=== PATIENT | female | born 2000 | race Caucasian/White ===

== ENCOUNTER 2020-10-20 11:55 | Emergency (ER) | payer MEDICAID, SELFPAY ==
--- NOTE | ~2020-10-20 | XR_ITS ---
EXAMINATION: XR CHEST CLINICAL INFORMATION: Cough and wheezing. COMPARISON: None TECHNIQUE: 2 views of the chest were obtained. FINDINGS: No significant abnormality is noted involving the heart, lungs, mediastinum, bony thorax or soft tissues. XR/XR chest 2V IMPRESSION: Unremarkable chest examination.
[2020-10-20 12:27] VITALS: BP 142/85; PULSE 92; RESP 20; TEMP 36.4; O2SAT 98; BMI 46.0
[2020-10-20 12:34] VITALS: RESP 18
--- NOTE | 2020-10-20 12:38 | ED.NAVMDI ---
HPI - Nausea/Vomiting/Diarrhea General Chief complaint: Nausea/Vomiting/Diarrhea <Mohsen Luque NP - Last Filed: 10/20/20 19:45> Stated complaint: multi complaints <Mohsen Luque NP - Last Filed: 10/20/20 19:45> Time Seen by Provider: 10/20/20 12:27 <Mohsen Luque NP - Last Filed: 10/20/20 19:45> Source: patient <Mohsen Luque NP - Last Filed: 10/20/20 19:45> Mode of arrival: ambulatory <VERN Rajan Last Filed: 10/20/20 19:45> Limitations: no limitations <Mohsen Luque NP - Last Filed: 10/20/20 19:45> History of Present Illness HPI Narrative: 19-year-old female with a past medical history of asthma and anemia here with complaints of dry cough, nausea, vomiting, diarrhea, body aches and generalized weakness since yesterday. Seen at [facility] this morning and had a negative COVID screen and was sent in for further evaluation. Patient denies chest pain, shortness of breath, abdominal pain, headache, neck pain. Had temp 99F yesterday and this morning. No chills, rashes, or joint pain. <VERN Rajan Last Filed: 10/20/20 19:45> Associated nausea: Yes <VERN Rajan Last Filed: 10/20/20 19:45> Related Data Home medications: Previous Rx's Medication Instructions Recorded albuterol sulfate 2 inh INHALATION Q4-6H PRN #1 ea 10/20/20 ibuprofen 600 mg PO Q8H PRN #20 tab 10/20/20 ondansetron 4 mg PO Q6H PRN #10 tab 10/20/20 <VERN Rajan Last Filed: 10/20/20 19:45> Allergies/Adverse reactions: Allergies Allergy/AdvReac Type Severity Reaction Status Date / Time No Known Allergies Allergy Unverified 01/31/20 17:09 <VERN Rajan Last Filed: 10/20/20 19:45> Review of Systems Review of Systems: Yes all other systems are reviewed and are negative <Mohsen Luque NP - Last Filed: 10/20/20 19:45> Constitutional: Constitutional: Reports no additional constitutional complaints, Reports body ache(s), Denies chills, Denies fever(s), Denies headache(s) and Reports weakness <Mohsen Luque NP - Last Filed: 10/20/20 19:45> Eyes: Eyes: Reports no additional eye complaints and Denies change in vision <Mohsen Luque NP - Last Filed: 10/20/20 19:45> ENT: Reports system reviewed and no additional complaints, except as documented, Denies dizziness, Denies headache(s), Denies nasal congestion, Denies nasal discharge and Denies neck pain <Mohsen Luque NP - Last Filed: 10/20/20 19:45> Cardiovascular: Cardiovascular: Reports no additional cardiovascular complaints, Denies chest pain, Denies leg edema and Denies dyspnea <Mohsen Luque NP - Last Filed: 10/20/20 19:45> Respiratory: Respiratory: Reports no additional respiratory complaints, Reports cough and Denies dyspnea <Mohsen Luque NP - Last Filed: 10/20/20 19:45> Gastrointestinal: Gastrointestinal: Reports no additional gastrointestinal complaints, Denies abdominal pain, Reports diarrhea, Reports nausea and Reports vomiting <Mohsen Luque NP - Last Filed: 10/20/20 19:45> Genitourinary: Genitourinary: Reports no additional female genitourinary complaints and Denies urinary incontinence <Mohsen Luque NP - Last Filed: 10/20/20 19:45> Musculoskeletal: Musculoskeletal: Reports no additional musculoskeletal complaints, Denies back pain, Denies arthralgias, Denies joint swelling, Denies neck pain, Denies numbness and Denies tingling <Mohsen Luque NP - Last Filed: 10/20/20 19:45> Integumentary/Breasts: Skin/Breast: Reports system reviewed and no additional complaints, except as docu and Denies rash <Mohsen Luque NP - Last Filed: 10/20/20 19:45> Neurologic: Reports system reviewed and no additional complaints, except as documented, Denies Abnormal speech present, Denies dizziness, Denies headache(s), Denies numbness, Denies tingling and Reports weakness <Mohsen Luque NP - Last Filed: 10/20/20 19:45> PMFSH Past Medical History Attestation statement: The following information was validated with the patient. <Mohsen Luque NP - Last Filed: 10/20/20 19:45> Source: old records reviewed and nursing notes reviewed <Mohsen Luque NP - Last Filed: 10/20/20 19:45> Medical History: Medical History Anemia Asthma <Mohsen Luque NP - Last Filed: 10/20/20 19:45> Social History Social History: Social History Alcohol intake: never Patient Tobacco Use Status: Never used Tobacco Substance Use Type: Marijuana Advance Directives: No Advance Directives Information Provided: No Patient : No <Mohsen Luque NP - Last Filed: 10/20/20 19:45> Physical Exam Vital Signs: Vital Signs: Last Vital Signs Temp 97.6 F 10/20/20 15:58 Pulse 94 10/20/20 15:58 Resp 18 10/20/20 15:58 BP 144/74 H 10/20/20 15:58 Pulse Ox 100 10/20/20 15:58 Body Mass Index 46.0 <Mohsen Luuqe NP - Last Filed: 10/20/20 19:45> Vital Signs: Last Vital Signs Temp 97.6 F 10/20/20 15:58 Pulse 94 10/20/20 15:58 Resp 18 10/20/20 15:58 BP 144/74 H 10/20/20 15:58 Pulse Ox 100 10/20/20 15:58 Body Mass Index 46.0 <Nicho Méndez MD - Last Filed: 10/22/20 13:43> Const: General: cooperative, healthy appearing, comfortable and no acute distress <Mohsen Luque NP - Last Filed: 10/20/20 19:45> Orientation/consciousness: patient oriented x3 <Mohsen Luque NP - Last Filed: 10/20/20 19:45> Limitations: no limitations <Mohsen Luque NP - Last Filed: 10/20/20 19:45> HENMT: Head: Yes normal to inspection <Mohsen Luque NP - Last Filed: 10/20/20 19:45> Ears: hearing grossly normal bilaterally <Mohsen Luque NP - Last Filed: 10/20/20 19:45> General nose exam: Normal external nose present <Mohsen Luque NP - Last Filed: 10/20/20 19:45> Face and sinus: Yes normal facial exam <Mohsen Luque NP - Last Filed: 10/20/20 19:45> Mouth: Normal oral and palatal mucosa present <Mohsen Luque NP - Last Filed: 10/20/20 19:45> Throat: Yes posterior oropharynx normal <Mohsen Luque NP - Last Filed: 10/20/20 19:45> Eyes: General: appearance normal, both eyes and all related structures <Mohsen Luque NP - Last Filed: 10/20/20 19:45> Pupils: Equal, round and reactive pupils present <Mohsen Luque NP - Last Filed: 10/20/20 19:45> Neck: Neck: Yes normal visual inspection <Mohsen Luque NP - Last Filed: 10/20/20 19:45> Chest: Chest palpation & inspection: normal inspection of the chest <Mohsen Luque NP - Last Filed: 10/20/20 19:45> Resp: Effort & Inspection: normal respiratory effort <Mohsen Luque NP - Last Filed: 10/20/20 19:45> Auscultation: clear to auscultation bilaterally <Mohsen Luque NP - Last Filed: 10/20/20 19:45> Cardio: Rate: regular rate <Mohsen Luque NP - Last Filed: 10/20/20 19:45> Rhythm: regular rhythm <Mohsen Luque NP - Last Filed: 10/20/20 19:45> Peripheral pulses: Peripheral pulses 2+ throughout <Mohsen Luque NP - Last Filed: 10/20/20 19:45> GI: Inspection: Yes normal to inspection <Mohsen Luque NP - Last Filed: 10/20/20 19:45> Palpation (GI): Soft to palpation and nontender <Mohsen Luque NP - Last Filed: 10/20/20 19:45> Auscultation: normal bowel sounds <Mohsen Luque NP - Last Filed: 10/20/20 19:45> Back/Spine/Pelvis: Thoracic/Lumbar Spine: thoracic and lumbar spine normal to inspection <Mohsen Luque NP - Last Filed: 10/20/20 19:45> Skin: General skin exam: no rashes or lesions noted <Mohsen Luque NP - Last Filed: 10/20/20 19:45> Neuro: General: patient oriented x3, no focal motor deficits and normal sensation to monofilament <Mohsen Luque NP - Last Filed: 10/20/20 19:45> Cranial nerves: Yes Equal, round and reactive pupils present <Mohsen Luque NP - Last Filed: 10/20/20 19:45> Cognition (Neuro): normal cognition <Mohsen Luque NP - Last Filed: 10/20/20 19:45> Speech: No Abnormal speech present <Mohsen Luque NP - Last Filed: 10/20/20 19:45> Gait exam (Neuro): Normal gait present <Mohsen Luque NP - Last Filed: 10/20/20 19:45> Motor exam (neuro): 5/5 motor strength present throughout <Mohsen Luque NP - Last Filed: 10/20/20 19:45> Extrem: General: Yes normal to inspection, Yes no pedal edema and Yes no calf tenderness <Mohsen Luque NP - Last Filed: 10/20/20 19:45> Course Course Course Narrative: 19-year-old female here with flu-like symptoms x 48 hours. Seen at [facility] and had a negative COVID screen. Sent here for further evaluation. On arrival the patient is hemodynamically stable. Afebrile. Abdomen is soft and nontender. She appears well. Will check labs, UA, CXR. Place PIV for NSB, antiemetic and analgesia and re-assess. 1550-UA negative. X-ray negative. Labs show mild leukocytosis which is likely reactive to vomiting. Likely viral syndrome. Could consider COVID-19. Patient tested this morning and negative however symptoms just began yesterday and so we discussed quarantine Ng and retesting in several days. Will need PO trial prior to dispo. -patient tolerated fluids with no additional vomiting episodes. Reviewed worrisome signs and symptoms of when to return to the emergency department. Comfortable discharge home. <Mohsen Luque NP - Last Filed: 10/20/20 19:45> I have reviewed the chart <Nicho Méndez MD - Last Filed: 10/22/20 13:43> MDM - Nausea/Vomiting/Diarrhea MDM Narrative Medical decision making narrative: viral syndrome, UTI, PNA, COVID 19 <Mohsen Luque NP - Last Filed: 10/20/20 19:45> Medical Records Attestation: I reviewed the patient's medical records. <Mohsen Luque NP - Last Filed: 10/20/20 19:45> Lab Data Attestation: I reviewed the patient's lab results. <Mohsen Luque NP - Last Filed: 10/20/20 19:45> Result diagrams: : 10/20/20 12:50 10/20/20 14:03 <Mohsen Luque NP - Last Filed: 10/20/20 19:45> Labs: Lab Results 10/20/20 10/20/20 10/20/20 Range/Units 12:50 14:03 14:03 WBC 14.6 H (4.8-10.8) X10*3/uL RBC 5.08 (4.20-5.50) X10*6/uL Hgb 13.3 (12.0-16.0) g/dl Hct 41.9 (37-47) % MCV 82.5 (80-98) fL MCH 26.2 L (27.0-33.0) pg MCHC 31.7 (31.0-35.0) g/dl RDW 14.4 (11.0-16.0) % Plt Count 301 (160-400) X10*3/uL MPV Not Reportable Immature Gran % (Auto) 0.5 H (0.0-0.4) % Neut % (Auto) 86.3 H (45-73) % Lymph % (Auto) 5.3 L (20-40) % [place] % (Auto) 7.3 (2-11) % Eos % (Auto) 0.3 (0-4) % Baso % (Auto) 0.3 (0-2) % Lymph # (Auto) 0.8 L (1.2-4.9) X10*3/uL [place] # (Auto) 1.1 (0.1-1.2) X10*3/uL Eos # (Auto) 0.0 (0.0-0.4) X10*3/uL Baso # (Auto) 0.0 (0.0-0.2) X10*3/uL Abs Immat Gran (auto) 0.08 H (0.00-0.03) X10*3/uL Absolute Neuts (auto) 12.6 H (2.0-8.3) X10*3/uL Absolute Nucleated RBC 0.000 (0.0-0.012) X10*3/uL Nucleated RBC % (auto) 0.0 (0.0-0.2) /100WBC Smear Tech's Comments VERIFIED Sodium 137 (135-145) mmol/L Potassium 4.2 (3.3-5.1) mmol/L Chloride 107 (96-108) mmol/L Carbon Dioxide 22 (22-29) mmol/L Anion Gap 12 (12-20) BUN 5 L (9-16) mg/dL Creatinine 0.67 (0.5-1.4) mg/dL Estim Creat Clear Calc 183.0 Estimated GFR > 60 Random Glucose 97 (60-115) mg/dL Calcium 8.9 (8.4-10.2) mg/dL Total Bilirubin 0.6 (0.0-1.0) mg/dL Direct Bilirubin 0.2 (0.0-0.5) mg/dL AST 12 (5-31) U/L ALT 10 (0-31) U/L Alkaline Phosphatase 113 (39-117) U/L Total Protein 6.9 (6.5-8.0) g/dL Albumin 3.9 (3.5-5.0) g/dL Urine Color YELLOW Urine Appearance HAZY Urine pH 6.0 (5.0-8.0) Ur Specific [place] 1.020 (1.005-1.025) Urine Protein NEG (NEG-TRACE) MG/DL Urine Glucose (UA) NEG (NEG) MG/DL Urine Ketones NEG (NEG) MG/DL Urine Blood 1+ H (NEG) Urine Nitrite NEG (NEG) Ur Leukocyte Esterase NEG (NEG) Urine RBC 1-4 (0) /HPF Urine WBC 1-4 (0-4) /HPF Ur Squamous Epith Cells 2+ /LPF Urine Bacteria TRACE /LPF Urine Mucus 1+ /LPF Urine Test (NEGATIVE) 10/20/20 Range/Units 14:03 WBC (4.8-10.8) X10*3/uL RBC (4.20-5.50) X10*6/uL Hgb (12.0-16.0) g/dl Hct (37-47) % MCV (80-98) fL MCH (27.0-33.0) pg MCHC (31.0-35.0) g/dl RDW (11.0-16.0) % Plt Count (160-400) X10*3/uL MPV Immature Gran % (Auto) (0.0-0.4) % Neut % (Auto) (45-73) % Lymph % (Auto) (20-40) % [place] % (Auto) (2-11) % Eos % (Auto) (0-4) % Baso % (Auto) (0-2) % Lymph # (Auto) (1.2-4.9) X10*3/uL [place] # (Auto) (0.1-1.2) X10*3/uL Eos # (Auto) (0.0-0.4) X10*3/uL Baso # (Auto) (0.0-0.2) X10*3/uL Abs Immat Gran (auto) (0.00-0.03) X10*3/uL Absolute Neuts (auto) (2.0-8.3) X10*3/uL Absolute Nucleated RBC (0.0-0.012) X10*3/uL Nucleated RBC % (auto) (0.0-0.2) /100WBC Smear Tech's Comments Sodium (135-145) mmol/L Potassium (3.3-5.1) mmol/L Chloride (96-108) mmol/L Carbon Dioxide (22-29) mmol/L Anion Gap (12-20) BUN (9-16) mg/dL Creatinine (0.5-1.4) mg/dL Estim Creat Clear Calc Estimated GFR Random Glucose (60-115) mg/dL Calcium (8.4-10.2) mg/dL Total Bilirubin (0.0-1.0) mg/dL Direct Bilirubin (0.0-0.5) mg/dL AST (5-31) U/L ALT (0-31) U/L Alkaline Phosphatase (39-117) U/L Total Protein (6.5-8.0) g/dL Albumin (3.5-5.0) g/dL Urine Color Urine Appearance Urine pH (5.0-8.0) Ur Specific [place] (1.005-1.025) Urine Protein (NEG-TRACE) MG/DL Urine Glucose (UA) (NEG) MG/DL Urine Ketones (NEG) MG/DL Urine Blood (NEG) Urine Nitrite (NEG) Ur Leukocyte Esterase (NEG) Urine RBC (0) /HPF Urine WBC (0-4) /HPF Ur Squamous Epith Cells /LPF Urine Bacteria /LPF Urine Mucus /LPF Urine Test NEGATIVE (NEGATIVE) <Mohsen Luque, VERN - Last Filed: 10/20/20 19:45> Lab Results 10/20/20 10/20/20 10/20/20 Range/Units 12:50 14:03 14:03 WBC 14.6 H (4.8-10.8) X10*3/uL RBC 5.08 (4.20-5.50) X10*6/uL Hgb 13.3 (12.0-16.0) g/dl Hct 41.9 (37-47) % MCV 82.5 (80-98) fL MCH 26.2 L (27.0-33.0) pg MCHC 31.7 (31.0-35.0) g/dl RDW 14.4 (11.0-16.0) % Plt Count 301 (160-400) X10*3/uL MPV Not Reportable Immature Gran % (Auto) 0.5 H (0.0-0.4) % Neut % (Auto) 86.3 H (45-73) % Lymph % (Auto) 5.3 L (20-40) % [place] % (Auto) 7.3 (2-11) % Eos % (Auto) 0.3 (0-4) % Baso % (Auto) 0.3 (0-2) % Lymph # (Auto) 0.8 L (1.2-4.9) X10*3/uL [place] # (Auto) 1.1 (0.1-1.2) X10*3/uL Eos # (Auto) 0.0 (0.0-0.4) X10*3/uL Baso # (Auto) 0.0 (0.0-0.2) X10*3/uL Abs Immat Gran (auto) 0.08 H (0.00-0.03) X10*3/uL Absolute Neuts (auto) 12.6 H (2.0-8.3) X10*3/uL Absolute Nucleated RBC 0.000 (0.0-0.012) X10*3/uL Nucleated RBC % (auto) 0.0 (0.0-0.2) /100WBC Smear Tech's Comments VERIFIED Sodium 137 (135-145) mmol/L Potassium 4.2 (3.3-5.1) mmol/L Chloride 107 (96-108) mmol/L Carbon Dioxide 22 (22-29) mmol/L Anion Gap 12 (12-20) BUN 5 L (9-16) mg/dL Creatinine 0.67 (0.5-1.4) mg/dL Estim Creat Clear Calc 183.0 Estimated GFR > 60 Random Glucose 97 (60-115) mg/dL Calcium 8.9 (8.4-10.2) mg/dL Total Bilirubin 0.6 (0.0-1.0) mg/dL Direct Bilirubin 0.2 (0.0-0.5) mg/dL AST 12 (5-31) U/L ALT 10 (0-31) U/L Alkaline Phosphatase 113 (39-117) U/L Total Protein 6.9 (6.5-8.0) g/dL Albumin 3.9 (3.5-5.0) g/dL Urine Color YELLOW Urine Appearance HAZY Urine pH 6.0 (5.0-8.0) Ur Specific [place] 1.020 (1.005-1.025) Urine Protein NEG (NEG-TRACE) MG/DL Urine Glucose (UA) NEG (NEG) MG/DL Urine Ketones NEG (NEG) MG/DL Urine Blood 1+ H (NEG) Urine Nitrite NEG (NEG) Ur Leukocyte Esterase NEG (NEG) Urine RBC 1-4 (0) /HPF Urine WBC 1-4 (0-4) /HPF Ur Squamous Epith Cells 2+ /LPF Urine Bacteria TRACE /LPF Urine Mucus 1+ /LPF Urine Test (NEGATIVE) 10/20/20 Range/Units 14:03 WBC (4.8-10.8) X10*3/uL RBC (4.20-5.50) X10*6/uL Hgb (12.0-16.0) g/dl Hct (37-47) % MCV (80-98) fL MCH (27.0-33.0) pg MCHC (31.0-35.0) g/dl RDW (11.0-16.0) % Plt Count (160-400) X10*3/uL MPV Immature Gran % (Auto) (0.0-0.4) % Neut % (Auto) (45-73) % Lymph % (Auto) (20-40) % [place] % (Auto) (2-11) % Eos % (Auto) (0-4) % Baso % (Auto) (0-2) % Lymph # (Auto) (1.2-4.9) X10*3/uL [place] # (Auto) (0.1-1.2) X10*3/uL Eos # (Auto) (0.0-0.4) X10*3/uL Baso # (Auto) (0.0-0.2) X10*3/uL Abs Immat Gran (auto) (0.00-0.03) X10*3/uL Absolute Neuts (auto) (2.0-8.3) X10*3/uL Absolute Nucleated RBC (0.0-0.012) X10*3/uL Nucleated RBC % (auto) (0.0-0.2) /100WBC Smear Tech's Comments Sodium (135-145) mmol/L Potassium (3.3-5.1) mmol/L Chloride (96-108) mmol/L Carbon Dioxide (22-29) mmol/L Anion Gap (12-20) BUN (9-16) mg/dL Creatinine (0.5-1.4) mg/dL Estim Creat Clear Calc Estimated GFR Random Glucose (60-115) mg/dL Calcium (8.4-10.2) mg/dL Total Bilirubin (0.0-1.0) mg/dL Direct Bilirubin (0.0-0.5) mg/dL AST (5-31) U/L ALT (0-31) U/L Alkaline Phosphatase (39-117) U/L Total Protein (6.5-8.0) g/dL Albumin (3.5-5.0) g/dL Urine Color Urine Appearance Urine pH (5.0-8.0) Ur Specific [place] (1.005-1.025) Urine Protein (NEG-TRACE) MG/DL Urine Glucose (UA) (NEG) MG/DL Urine Ketones (NEG) MG/DL Urine Blood (NEG) Urine Nitrite (NEG) Ur Leukocyte Esterase (NEG) Urine RBC (0) /HPF Urine WBC (0-4) /HPF Ur Squamous Epith Cells /LPF Urine Bacteria /LPF Urine Mucus /LPF Urine Test NEGATIVE (NEGATIVE) <Nicho Méndez MD - Last Filed: 10/22/20 13:43> Imaging Data Chest x-ray: Attestation: I personally reviewed and interpreted this imaging study as follows: <Mohsen Luque NP - Last Filed: 10/20/20 19:45> Radiologist's impression: [address] [id number] ReportSigned Patient: Santiago SolomonMR#: [id number]: 2000Acct:[id number]/Sex: 19 / FADM Date: 10/20/20Loc: HO.EDAttending Dr: Ordering Physician: MOHSEN LUQUE NP Date of Service: 10/20/20 Procedure(s): XR chest 2V Accession Number(s): [id number] cc: MOHSEN LUQUE NP~ EXAMINATION: XR CHEST CLINICAL INFORMATION: Cough and wheezing. COMPARISON: None TECHNIQUE: 2 views of the chest were obtained. FINDINGS: No significant abnormality is noted involving the heart, lungs, mediastinum, bony thorax or soft tissues. XR/XR chest 2V IMPRESSION: Unremarkable chest examination. <Mohsen Luque NP - Last Filed: 10/20/20 19:45> Discharge Plan Discharge Clinical Impression: Acute viral syndrome <Mohsen Luque NP - Last Filed: 10/20/20 19:45> Patient Disposition: Home, Self-Care <Mohsen Luque NP - Last Filed: 10/20/20 19:45> Instructions: Viral Syndrome (ED) <Mohsen Luque NP - Last Filed: 10/20/20 19:45> Additional Instructions: Your lab work, x-ray and urine all look good today. We do recommend that you get retested for COVID-19 if you continue to have symptoms in several days. This is likely a virus. Motrin or Tylenol for pain or fever, increase fluids, rest You must continue to quarantine while you have symptoms. <Mohsen Luque NP - Last Filed: 10/20/20 19:45> Prescriptions: New ondansetron 4 mg tablet,disintegrating 4 mg PO Q6H PRN (Reason: nausea and vomiting) Qty: 10 RF: 0 ibuprofen 600 mg tablet 600 mg PO Q8H PRN (Reason: pain) Qty: 20 RF: 0 albuterol sulfate 90 mcg/actuation aerosol powdr breath activated 2 inh inhalation Q4-6H PRN (Reason: shortness of breath or wheezing) Qty: 1 RF: 0 <Mohsen Luque NP - Last Filed: 10/20/20 19:45> Referrals: Cecy Dillard MD [Primary Care Provider] - 2 days <Mohsen Luque NP - Last Filed: 10/20/20 19:45> Stand Alone Forms: Work/School Release <Mohsen Luque NP - Last Filed: 10/20/20 19:45> Discharge Date/Time: 10/20/20 16:39 <Mohsen Luque NP - Last Filed: 10/20/20 19:45>
[2020-10-20] MEDS: 0.9 % Sodium Chloride 1,000 ML 999 ML IV (12:47)
[2020-10-20] MEDS: Ketorolac Tromethamine 30 MG/ML VIAL IVPUSH (12:54)
[2020-10-20] MEDS: ondansetron HCL 4 MG/2 ML VIAL IVPUSH (12:55)
[2020-10-20 13:18] LABS: Basophils Percent Auto 0.3 % (0-2); Eosinophils Percent Auto 0.3 % (0-4); Hematocrit 41.9 % (37-47); Hemoglobin 13.3 g/dl (12.0-16.0); Imm Gran Abs Auto 0.08 X10*3/uL (0.00-0.03); Imm Gran Pct Auto 0.5 % (0.0-0.4); Lymphocytes Absolute Auto 0.8 X10*3/uL (1.2-4.9); Lymphocytes Percent Auto 5.3 % (20-40); MANUAL DIFF FLAG SCAN; Mean Corpuscular HGB Conc 31.7 g/dl (31.0-35.0); Mean Corpuscular Hemoglobin 26.2 pg (27.0-33.0); Mean Corpuscular Volume 82.5 fL (80-98); Monocytes Absolute Auto 1.1 X10*3/uL (0.1-1.2); Monocytes Percent Auto 7.3 % (2-11); Neutrophils Absolute Auto 12.6 X10*3/uL (2.0-8.3); Neutrophils Percent Auto 86.3 % (45-73); PLT CLUMP 1; Red Blood Count 5.08 X10*6/uL (4.20-5.50); Red Cell Distribution Width 14.4 % (11.0-16.0); SCAN SMEAR FLAG 1
[2020-10-20 13:37] LABS: Platelet Count 301 X10*3/uL (160-400); SLIDE REVIEW VERIFIED; White Blood Count 14.6 X10*3/uL (4.8-10.8)
[2020-10-20 14:06] VITALS: BP 109/51; PULSE 91; RESP 16; TEMP 36.6; O2SAT 100
[2020-10-20 14:15] LABS: Glucose Urine UA NEG (NEG); Leukocyte Esterase Urine NEG (NEG); Nitrite Urine NEG (NEG); Urine Blood 1+ (NEG); Urine Ketones NEG (NEG); Urine Protein NEG (NEG-TRACE)
[2020-10-20 14:18] LABS: Appearance Urine HAZY; Color Urine YELLOW; UPreg QC Valid YES; Urine Pregnancy NEGATIVE (NEGATIVE)
[2020-10-20 14:33] LABS: Bacteria Urine TRACE /LPF; Mucus Urine 1+ /LPF; Squamous Epithelial Cell Urine 2+ /LPF
[2020-10-20 14:45] LABS: Alanine Aminotransferase 10 U/L (0-31); Albumin Level 3.9 g/dL (3.5-5.0); Alkaline Phosphatase 113 U/L (39-117); Anion Gap 12 (12-20); Aspartate Amino Transferase 12 U/L (5-31); Bilirubin Direct 0.2 mg/dL (0.0-0.5); Bilirubin Total 0.6 mg/dL (0.0-1.0); Blood Urea Nitrogen 5 mg/dL (9-16); Calcium 8.9 mg/dL (8.4-10.2); Carbon Dioxide 22 mmol/L (22-29); Chloride 107 mmol/L (96-108); Estimated Glomerular Filt Rate > 60; Glucose Random 97 mg/dL (60-115); Potassium 4.2 mmol/L (3.3-5.1); Sodium 137 mmol/L (135-145); Total Protein 6.9 g/dL (6.5-8.0)
[2020-10-20 15:58] VITALS: BP 144/74; PULSE 94; RESP 18; TEMP 36.4; O2SAT 100
--- NOTE | 2020-10-20 16:39 | PC.NURSE ---
Peripheral iv removed and pressure bandage applied. discharge instructions given to pt who verbalized understanding and denies any questions.
== END 2020-10-20 16:39 | disposition home or self-care (01) ==
PROVIDERS: Nurse Practitioner Family; Emergency Provider Emergency Medicine; PCP Pediatrics
DX: B34.9 Viral infection, unspecified (principal); D72.829 Elevated white blood cell count, unspecified; J45.909 Unspecified asthma, uncomplicated
CPT/HCPCS: 36415; 71046; 80048; 80076; 81001; 81025; 85025; 96365; 96375; 99284; J1885; J2405

== ENCOUNTER 2021-06-02 13:36 | Outpatient (REF) | payer MEDICAID, SELFPAY ==
--- NOTE | ~2021-06-02 | US_ITS ---
EXAMINATION: US DIAGNOSTIC ULTRASOUND BREAST, LEFT CLINICAL INFORMATION: 20-year-old with marble sized palpable area upper inner left breast for approximately one month near surface. No prior breast imaging. COMPARISON: None. TECHNIQUE: Ultrasound of the left breast is targeted to the area of clinical concern. Patient is able to point to area of concern at time of imaging. Grayscale imaging and color Doppler are performed without and with harmonics. FINDINGS: There is no focal suspicious finding. There is no cystic or solid mass, architectural abnormality, duct ectasia, or edema in the soft tissue planes. Results are discussed with the patient at time of visit. Patient should be managed based on the clinical impression. If clinically indicated, further evaluation may be considered with surgical consult. Decision to proceed with biopsy should be based on clinical grounds and degree of clinical concern. US/US breast LT limited IMPRESSION: Normal study. ASSESSMENT: BI-RADS 1: Negative RECOMMENDATION: Patient should be managed based on the clinical impression. If clinically indicated, further evaluation may be considered with surgical consult. Decision to proceed with biopsy should be based on clinical grounds and degree of clinical concern.
== END 2021-06-02 13:37 | disposition home or self-care (01) ==
LOC: HO.MAMMO 13:36
PROVIDERS: PCP Pediatrics; Visit Provider Pediatrics
DX: N63.22 Unspecified lump in the left breast, upper inner quadrant (principal)
CPT/HCPCS: 76642

== ENCOUNTER 2021-10-26 07:55 | Emergency (ER) | payer MEDICAID, SELFPAY ==
--- NOTE | ~2021-10-26 | CT_ITS ---
EXAMINATION: CT ABDOMEN AND PELVIS WITHOUT CONTRAST CLINICAL INFORMATION: Abdominal pain COMPARISON: Previous pelvic ultrasound April 2016 TECHNIQUE: Multidetector volumetric imaging was performed from the superior aspect of the liver through the pubic symphysis. Sagittal and coronal reformatted images were obtained on the technologist's workstation. This CT examination was performed using dose optimization techniques as appropriate, variously including the following: *Automated exposure control *Adjustment of mA and/or kV according to patient size (this includes techniques or standardized protocols for targeted exams where dose is matched to indication/reason for exam; i.e. extremities or head) *Use of iterative reconstruction technique DLP: 1317 mGy-cm FINDINGS: LUNG BASES: The visualized lung bases are unremarkable. LIVER, GALLBLADDER, AND BILIARY TREE: The liver is normal in size, shape, and attenuation. No focal hepatic lesion or biliary ductal dilatation is present. The gallbladder is unremarkable with no evidence of radiopaque gallstones, gallbladder wall thickening, or obvious pericholecystic inflammatory changes. PANCREAS: Unremarkable. SPLEEN: Unremarkable. ADRENAL GLANDS: Unremarkable. KIDNEYS AND URETERS: There is a small 1 mm nonobstructing stone in the upper pole of the left kidney. The kidneys are otherwise normal. BLADDER: Unremarkable. GASTROINTESTINAL TRACT: The small and large bowel are unremarkable. The appendix is unremarkable. ABDOMINAL WALL: No significant hernia is appreciated. LYMPH NODES: Normal. VASCULAR: Unremarkable. PELVIC VISCERA: Unremarkable. OSSEOUS STRUCTURES: Unremarkable. CT/CT abdomen pelvis wo con IMPRESSION: Small nonobstructing left renal stone. Otherwise unremarkable exam. Fleischner guidelines were followed.
--- NOTE | ~2021-10-26 | XR_ITS ---
EXAMINATION: XR CHEST CLINICAL INFORMATION: Epigastric pain COMPARISON: Chest 10/20/2020 TECHNIQUE: Frontal view of the chest was obtained. FINDINGS: No significant abnormality is noted involving the heart, lungs, mediastinum, bony thorax or soft tissues. XR/XR chest 1V IMPRESSION: Unremarkable chest exam.
[2021-10-26 08:00] VITALS: BP 90/63; PULSE 100; RESP 18; TEMP 36.6; O2SAT 100; BMI 45.7
[2021-10-26 08:30] VITALS: BP 111/61; PULSE 87; RESP 18; TEMP 36.9; O2SAT 99
--- NOTE | 2021-10-26 08:32 | ED.GENADULT ---
HPI - General Adult General Chief complaint: Nausea/Vomiting/Diarrhea Stated complaint: headache, vomiting Time Seen by Provider: 10/26/21 08:32 Source: patient Mode of arrival: ambulatory Limitations: no limitations History of Present Illness HPI narrative: Patient is a 20 year old female presenting to the emergency department today with abdominal pain, nausea, vomiting, and diarrhea. Patient states that for the last few days, she has had low abdominal pain, nausea, vomiting, and diarrhea. Patient states that no one else in the house hold is sick. Patient states that she is in a same sex relationship and has no concern for . Patient denies any dizziness, lightheadedness, fever, chills, blurry vision, double vision, loss of vision, chest pain, difficulty breathing, shortness of breath, back pain, night sweats, pain with urination, increased urinary frequency, increased urinary urgency, vaginal bleeding, vaginal discharge, blood in her urine or stool, syncope or a near syncopal episode, recent trauma or falls, bowel incontinence, bladder incontinence, bowel retention, bladder retention, or any other complaints at this time. Onset (ago): day(s) Location: abdomen Radiation: non-radiation Severity: mild Severity scale (1-10): 2 Quality: dull Pain Consistency: constant Relieving factors: none Exacerbating factors: none Associated symptoms: nausea/vomiting Treatments prior to arrival: none Related Data Previous Rx's Medication Instructions Recorded albuterol sulfate 90 mcg/actuation 2 inh inhalation Q4-6H PRN 10/20/20 breath activated powder inhaler shortness of breath or wheezing #1 ea ibuprofen 600 mg tablet 600 mg PO Q8H PRN pain #20 tabs 10/20/20 cephalexin 500 mg capsule 500 mg PO Q6H 7 days #28 caps 10/26/21 ondansetron 4 mg disintegrating 4 mg PO Q8H 3 days #9 tabs 10/26/21 tablet Allergies Allergy/AdvReac Type Severity Reaction Status Date / Time No Known Allergies Allergy Unverified 01/31/20 17:09 Review of Systems Constitutional: Constitutional: Reports no additional constitutional complaints, Denies chills, Denies fever(s) and Denies night sweats Eyes: Eyes: Reports no additional eye complaints, Denies blurry vision, Denies change in vision, Denies diplopia, Denies eye discharge, Denies loss of vision and Denies eye pain ENT: Denies dizziness Cardiovascular: Cardiovascular: Reports no additional cardiovascular complaints, Denies chest pain, Denies lightheadedness, Denies Loss of Consciousness and Denies dyspnea Respiratory: Respiratory: Reports no additional respiratory complaints and Denies dyspnea Gastrointestinal: Gastrointestinal: Reports no additional gastrointestinal complaints, Reports abdominal pain, Denies melena, Denies hematochezia, Denies change in bowel habits, Denies change in stool character, Reports nausea and Reports vomiting Genitourinary: Genitourinary: Denies hematuria, Denies urinary frequency, Denies dysuria, Denies urinary incontinence, Denies urinary hesitancy and Denies urinary urgency Musculoskeletal: Musculoskeletal: Reports no additional musculoskeletal complaints, Denies numbness and Denies tingling Neurologic: Denies dizziness, Denies loss of vision, Denies numbness and Denies tingling Psychiatric: Psychiatric: Reports no additional psychiatric complaints Endocrine: Endocrine: Reports no additional endocrine complaints Hematologic/Lymphatic: Hematologic/Lymphatic: Reports no additional hematologic/lymphatic complaints Allergic/Immunologic: Allergic/Immunologic: Reports no additional allergic/immunologic complaints PMFSH Past Medical History Attestation statement: The following information was validated with the patient. Source: old records reviewed Medical History Anemia Asthma Social History Social History Alcohol intake: never Patient Tobacco Use Status: Never used Tobacco Substance Use Type: Marijuana Advance Directives: No Advance Directives Information Provided: No Patient : No Physical Exam ED Vital Signs: Vital Signs - 24 hr 10/26/21 08:00 10/26/21 08:30 10/26/21 10:50 Temperature 98 F 98.5 F Pulse Rate 100 87 54 Respiratory Rate 18 18 18 Blood Pressure 90/63 111/61 120/65 Pulse Oximetry 100 99 99 Oxygen Delivery Method Room Air Room Air Room Air 10/26/21 12:05 Temperature Pulse Rate 55 Respiratory Rate 16 Blood Pressure 132/83 Pulse Oximetry 99 Oxygen Delivery Method Room Air BMI result Body Mass Index 45.7 Const General: cooperative, no acute distress, alert and awake Nutritional Appearance: well nourished Orientation/consciousness: patient oriented x3 Limitations: no limitations HENMT Head: Yes normal to inspection and Yes atraumatic Ears: hearing grossly normal bilaterally and external ears normal General nose exam: Normal external nose present, no nasal discharge noted and no epistaxis Face and sinus: Yes normal facial exam, No abrasion and No laceration Mouth: Normal oral and palatal mucosa present, no drooling and no muffled voice Eyes General: appearance normal, both eyes and all related structures Periorbital: periorbital findings normal Eyelids: Yes eyelids normal Conjunctivae: conjunctivae normal Pupils: Equal, round and reactive pupils present EOM: EOMs intact bilaterally Neck Neck: Yes normal visual inspection, Yes full ROM and Yes no lymphadenopathy Chest Chest palpation & inspection: normal inspection of the chest Resp Effort & Inspection: normal respiratory effort and able to speak in complete sentences Auscultation: clear to auscultation bilaterally Cardio Rate: regular rate Rhythm: regular rhythm GI Inspection: Yes normal to inspection Palpation (GI): Soft to palpation, not firm, nontender, no guarding and not rigid Neuro General: patient oriented x3 and moves all extremities Cranial nerves: Yes Equal, round and reactive pupils present Cognition (Neuro): normal cognition Motor exam (neuro): 5/5 motor strength present throughout Sensory Exam: Normal double simultaneous stimulation for sensation Coordination: [id number] test normal Extrem General: Yes normal to inspection, Yes full ROM and Yes capillary refill normal Psych Appearance: grossly normal Mental Status: mental status grossly normal Affect: normal affect Attitude: cooperative Thought process: Normal thought process present Thought content: Normal thought content present Insight: Good insight present (Psych) Medical Decision Making MDM Narrative Medical decision making narrative: Patient is a 20 year old female presenting to the emergency department today with abdominal pain. Patient's physical exam was unremarkable. Patient's blood work was unremarkable. Patient's urine showed a very minimal urinary tract infection. Patient's EKG was unremarkable. Patient's chest x-ray showed no acute process. Patient's abdominal CT scan showed a kidney stone on the left, non-obstructing. I explained my physical exam findings as well as all test results to the patient. I answered all questions asked by the patient. Patient received IV fluids, IV Zofran, and IV Toradol which she stated helped her symptoms significantly. I stressed the importance of the patient taking her medication as prescribed. I stressed the importance of the patient following up with her primary care provider. I stressed the importance of the patient returning to the emergency department immediately if her symptoms were to worsen or if she were to develop any dizziness, shortness of breath, difficulty breathing, chest pain, blurry vision, loss of vision, nausea, vomiting, abdominal pain, fever, chills, back pain, or any other complaints. Patient verbalized agreement and understanding with this treatment plan and discharge. Differential Diagnosis Differential Diagnosis: abdominal pain, UTI, renal calculi Medical Records Medical records reviewed: Yes I reviewed the patient's medical records. Lab Data Lab results reviewed: Yes I reviewed the patient's lab results. Result diagrams: 10/26/21 09:09 10/26/21 09:09 Labs: Lab Results 10/26/21 10/26/21 10/26/21 Range/Units 09:09 09:09 09:09 WBC 5.7 (4.8-10.8) X10*3/uL RBC 5.07 (4.20-5.50) X10*6/uL Hgb 13.6 (12.0-16.0) g/dl Hct 42.4 (37.0-47.0) % MCV 83.6 (80.0-98.0) fL MCH 26.8 L (27.0-33.0) pg MCHC 32.1 (31.0-35.0) g/dl RDW 13.6 (11.0-16.0) % Plt Count 352 (160-400) X10*3/uL MPV 10.0 (9.4-12.3) fL Immature Gran % (Auto) 0.2 (0.0-0.4) % Neut % (Auto) 62.5 (45-73) % Lymph % (Auto) 21.2 (20-40) % Grady % (Auto) 12.9 H (2-11) % Eos % (Auto) 2.8 (0-4) % Baso % (Auto) 0.4 (0-2) % Lymph # (Auto) 1.2 (1.2-4.9) X10*3/uL Grady # (Auto) 0.7 (0.1-1.2) X10*3/uL Eos # (Auto) 0.2 (0.0-0.4) X10*3/uL Baso # (Auto) 0.0 (0.0-0.2) X10*3/uL Abs Immat Gran (auto) 0.01 (0.00-0.03) X10*3/uL Absolute Neuts (auto) 3.5 (2.0-8.3) x10*3/uL Absolute Nucleated RBC 0.000 (0.0-0.012) X10*3/uL Nucleated RBC % (auto) 0.0 (0.0-0.2) /100WBC Sodium 137 (135-145) mmol/L Potassium 4.9 (3.3-5.1) mmol/L Chloride 104 (96-108) mmol/L Carbon Dioxide 24 (22-29) mmol/L Anion Gap 14 (12-20) BUN 9 (9-16) mg/dL Creatinine 0.67 (0.5-1.4) mg/dL Estim Creat Clear Calc 174.8 Estimated GFR > 60 Random Glucose 95 (60-115) mg/dL Calcium 9.1 (8.4-10.2) mg/dL Magnesium 2.0 (1.6-2.6) mg/dL Total Bilirubin 0.4 (0.0-1.0) mg/dL AST 22 D (5-31) U/L ALT 15 (0-31) U/L Alkaline Phosphatase 97 (39-117) U/L Troponin I High Sens < 3.5 (<3.5-17.0) ng/L Total Protein 7.2 (6.5-8.0) g/dL Albumin 3.7 (3.5-5.0) g/dL Urine Color Urine Appearance Urine pH (5.0-8.0) Ur Specific [place] (1.005-1.025) Urine Protein (NEG-TRACE) MG/DL Urine Glucose (UA) (NEG) MG/DL Urine Ketones (NEG) MG/DL Urine Blood (NEG) Urine Nitrite (NEG) Ur Leukocyte Esterase (NEG) Urine RBC (0) /HPF Urine WBC (0-4) /HPF Ur Squamous Epith Cells /LPF Urine Bacteria /LPF COVID-19 ([facility]) (Negative) COVID-19 Clin Com Influenza Type A ([facility]) (Negative) Influenza Type B ([facility]) (Negative) Influenza A & B Note 10/26/21 10/26/21 10/26/21 Range/Units 09:09 09:09 11:52 WBC (4.8-10.8) X10*3/uL RBC (4.20-5.50) X10*6/uL Hgb (12.0-16.0) g/dl Hct (37.0-47.0) % MCV (80.0-98.0) fL MCH (27.0-33.0) pg MCHC (31.0-35.0) g/dl RDW (11.0-16.0) % Plt Count (160-400) X10*3/uL MPV (9.4-12.3) fL Immature Gran % (Auto) (0.0-0.4) % Neut % (Auto) (45-73) % Lymph % (Auto) (20-40) % Grady % (Auto) (2-11) % Eos % (Auto) (0-4) % Baso % (Auto) (0-2) % Lymph # (Auto) (1.2-4.9) X10*3/uL Grady # (Auto) (0.1-1.2) X10*3/uL Eos # (Auto) (0.0-0.4) X10*3/uL Baso # (Auto) (0.0-0.2) X10*3/uL Abs Immat Gran (auto) (0.00-0.03) X10*3/uL Absolute Neuts (auto) (2.0-8.3) x10*3/uL Absolute Nucleated RBC (0.0-0.012) X10*3/uL Nucleated RBC % (auto) (0.0-0.2) /100WBC Sodium (135-145) mmol/L Potassium (3.3-5.1) mmol/L Chloride (96-108) mmol/L Carbon Dioxide (22-29) mmol/L Anion Gap (12-20) BUN (9-16) mg/dL Creatinine (0.5-1.4) mg/dL Estim Creat Clear Calc Estimated GFR Random Glucose (60-115) mg/dL Calcium (8.4-10.2) mg/dL Magnesium (1.6-2.6) mg/dL Total Bilirubin (0.0-1.0) mg/dL AST (5-31) U/L ALT (0-31) U/L Alkaline Phosphatase (39-117) U/L Troponin I High Sens (<3.5-17.0) ng/L Total Protein (6.5-8.0) g/dL Albumin (3.5-5.0) g/dL Urine Color YELLOW Urine Appearance CLEAR Urine pH 6.0 (5.0-8.0) Ur Specific [place] 1.025 (1.005-1.025) Urine Protein NEG (NEG-TRACE) MG/DL Urine Glucose (UA) NEG (NEG) MG/DL Urine Ketones NEG (NEG) MG/DL Urine Blood TRACE (NEG) Urine Nitrite NEG (NEG) Ur Leukocyte Esterase NEG (NEG) Urine RBC 1-4 (0) /HPF Urine WBC 1-4 (0-4) /HPF Ur Squamous Epith Cells 2+ /LPF Urine Bacteria 2+ /LPF COVID-19 ([facility]) Negative (Negative) COVID-19 Clin Com See Note Influenza Type A ([facility]) Negative (Negative) Influenza Type B ([facility]) Negative (Negative) Influenza A & B Note See Note Imaging Data Chest x-ray: Attestation: I personally reviewed and interpreted this imaging study as follows: My impression: No acute process. Radiologist's impression: EXAMINATION: XR CHEST CLINICAL INFORMATION: Epigastric pain COMPARISON: Chest 10/20/2020 TECHNIQUE: Frontal view of the chest was obtained. FINDINGS: No significant abnormality is noted involving the heart, lungs, mediastinum, bony thorax or soft tissues. XR/XR chest 1V IMPRESSION: Unremarkable chest exam. ? Dictated By: Perez Spencer MD Signed By: Electronically signed by Perez Spencer MD 10/26/[address] scan - abdomen: Attestation: I personally reviewed and interpreted this imaging study as follows: My impression: Left sided renal calculi. Radiologist's impression: EXAMINATION: CT ABDOMEN AND PELVIS WITHOUT CONTRAST? CLINICAL INFORMATION: Abdominal pain? COMPARISON: Previous pelvic ultrasound April 2016? TECHNIQUE: Multidetector volumetric imaging was performed from the superior aspect of the liver through the pubic symphysis. Sagittal and coronal reformatted images were obtained on the technologist's workstation.? This CT examination was performed using dose optimization techniques as appropriate, variously including the following: *Automated exposure control *Adjustment of mA and/or kV according to patient size (this includes techniques or standardized protocols for targeted exams where dose is matched to indication/reason for exam; i.e. extremities or head) *Use of iterative reconstruction technique DLP: 1317 mGy-cm FINDINGS: LUNG BASES: The visualized lung bases are unremarkable.? LIVER, GALLBLADDER, AND BILIARY TREE: The liver is normal in size, shape, and attenuation. No focal hepatic lesion or biliary ductal dilatation is present. The gallbladder is unremarkable with no evidence of radiopaque gallstones, gallbladder wall thickening, or obvious pericholecystic inflammatory changes.? PANCREAS: Unremarkable.? SPLEEN: Unremarkable.? ADRENAL GLANDS: Unremarkable.? KIDNEYS AND URETERS: There is a small 1 mm nonobstructing stone in the upper pole of the left kidney. The kidneys are otherwise normal.? BLADDER: Unremarkable.? GASTROINTESTINAL TRACT: The small and large bowel are unremarkable. The appendix is unremarkable.? ABDOMINAL WALL: No significant hernia is appreciated.? LYMPH NODES: Normal. VASCULAR: Unremarkable. PELVIC VISCERA: Unremarkable.? OSSEOUS STRUCTURES: Unremarkable.? CT/CT abdomen pelvis wo con IMPRESSION: Small nonobstructing left renal stone. Otherwise unremarkable exam. ? Fleischner guidelines were followed. Dictated By: Regina Verde MD Signed By: Electronically signed by Regina Verde MD 10/26/21 1120 ECG Data Attestation: I personally reviewed and interpreted this ECG as follows: Prior ECG tracings: not available for review Interpretation: Vent. Rate: 068 BPM ? ? Atrial Rate: 068 BPM P-R Int: 142 ms? QRS Dur: 090 ms QT Int: 400 ms ? ? ? P-R-T Axes: 034 013 027 degrees QTc Int: 425 ms ? Normal sinus rhythm Normal ECG No previous ECGs available DD/ [id number] Discharge Plan Discharge Clinical Impression: Kidney calculi, Urinary tract infection Patient Disposition: Home, Self-Care Instructions: Kidney Stones (ED), Urinary Tract Infection in Women (ED) Additional Instructions: Follow up with your primary care provider and a urologist. Return to the emergency department immediately if your symptoms worsen or if you develop any dizziness, shortness of breath, difficulty breathing, chest pain, blurry vision, loss of vision, nausea, vomiting, abdominal pain, fever, chills, back pain, or any other complaints. Prescriptions: New cephalexin 500 mg capsule 500 mg PO Q6H 7 Days Qty: 28 0RF ondansetron 4 mg tablet,disintegrating 4 mg PO Q8H 3 Days Qty: 9 0RF Continued ibuprofen 600 mg tablet 600 mg PO Q8H PRN (Reason: pain) Qty: 20 0RF albuterol sulfate 90 mcg/actuation aerosol powdr breath activated 2 inh inhalation Q4-6H PRN (Reason: shortness of breath or wheezing) Qty: 1 0RF Discontinued ondansetron 4 mg tablet,disintegrating 4 mg PO Q6H PRN (Reason: nausea and vomiting) Qty: 10 0RF Referrals: Cecy iDllard MD [Primary Care Provider] - Juvenal Roca MD [Physician] - Stand Alone Forms: Work/School Release Interventions: ED Discharge Assessment Last Done: 10/26/21 12:44 Discharge Date/Time: 10/26/21 12:46 Print Language: Wolof
--- NOTE | 2021-10-26 08:45 | ECG_ITS ---
Test Reason : vomiting Blood Pressure : / mmHG Vent. Rate : 068 BPM Atrial Rate : 068 BPM P-R Int : 142 ms QRS Dur : 090 ms QT Int : 400 ms P-R-T Axes : 034 013 027 degrees QTc Int : 425 ms Normal sinus rhythm Normal ECG No previous ECGs available Referred By: Sandra Foster Electronically Signed By:Livan Enrique
[2021-10-26] MEDS: 0.9 % Sodium Chloride 1,000 ML 999 ML IVCONT (09:07)
[2021-10-26] MEDS: ondansetron HCL 4 MG/2 ML VIAL IVPUSH (09:07)
[2021-10-26 09:21] LABS: MANUAL DIFF FLAG NO
[2021-10-26 09:29] LABS: Basophils Percent Auto 0.4 % (0-2); Eosinophils Absolute Auto 0.2 X10*3/uL (0.0-0.4); Eosinophils Percent Auto 2.8 % (0-4); Hematocrit 42.4 % (37.0-47.0); Hemoglobin 13.6 g/dl (12.0-16.0); Imm Gran Abs Auto 0.01 X10*3/uL (0.00-0.03); Imm Gran Pct Auto 0.2 % (0.0-0.4); Lymphocytes Absolute Auto 1.2 X10*3/uL (1.2-4.9); Lymphocytes Percent Auto 21.2 % (20-40); Mean Corpuscular HGB Conc 32.1 g/dl (31.0-35.0); Mean Corpuscular Hemoglobin 26.8 pg (27.0-33.0); Mean Corpuscular Volume 83.6 fL (80.0-98.0); Monocytes Absolute Auto 0.7 X10*3/uL (0.1-1.2); Monocytes Percent Auto 12.9 % (2-11); Neutrophils Absolute Auto 3.5 x10*3/uL (2.0-8.3); Neutrophils Percent Auto 62.5 % (45-73); Platelet Count 352 X10*3/uL (160-400); Red Blood Count 5.07 X10*6/uL (4.20-5.50); Red Cell Distribution Width 13.6 % (11.0-16.0); White Blood Count 5.7 X10*3/uL (4.8-10.8)
[2021-10-26 09:39] LABS: Alanine Aminotransferase 15 U/L (0-31); Albumin Level 3.7 g/dL (3.5-5.0); Alkaline Phosphatase 97 U/L (39-117); Anion Gap 14 (12-20); Aspartate Amino Transferase 22 U/L (5-31); Bilirubin Total 0.4 mg/dL (0.0-1.0); Blood Urea Nitrogen 9 mg/dL (9-16); Calcium 9.1 mg/dL (8.4-10.2); Carbon Dioxide 24 mmol/L (22-29); Chloride 104 mmol/L (96-108); Creatinine Clr Calc Pharmacy 174.8; Estimated Glomerular Filt Rate > 60; Glucose Random 95 mg/dL (60-115); Potassium 4.9 mmol/L (3.3-5.1); Sodium 137 mmol/L (135-145); Total Protein 7.2 g/dL (6.5-8.0)
[2021-10-26 09:42] LABS: COVID-19 Test Negative (Negative); IDNOW Serial# 16C4AD1C
[2021-10-26 09:43] LABS: Influenza A Negative (Negative); Influenza B2 Negative (Negative)
[2021-10-26 09:45] LABS: Troponin-I High Sensitivity < 3.5 ng/L (<3.5-17.0)
--- NOTE | 2021-10-26 10:27 | PC.NURSE ---
patient a/o reports improvement in nausea after zofran . resting comfortably
[2021-10-26 10:50] VITALS: BP 120/65; PULSE 54; RESP 18; O2SAT 99
[2021-10-26] MEDS: Ketorolac Tromethamine 30 MG/ML VIAL IVPUSH (11:49)
[2021-10-26 12:05] VITALS: BP 132/83; PULSE 55; RESP 16; O2SAT 99
[2021-10-26 12:06] LABS: Appearance Urine CLEAR; Color Urine YELLOW; Glucose Urine UA NEG (NEG); Leukocyte Esterase Urine NEG (NEG); Nitrite Urine NEG (NEG); Specific Gravity - Urine 1.025 (1.005-1.025); UACC Culture Trigger NO; Urine Blood TRACE (NEG); Urine Ketones NEG (NEG); Urine Protein NEG (NEG-TRACE)
[2021-10-26 12:18] LABS: Bacteria Urine 2+ /LPF; Squamous Epithelial Cell Urine 2+ /LPF
--- NOTE | 2021-10-26 12:44 | PC.NURSE ---
Iv removed prior to discharge . patient given strainer and cup to catch kidney stone and retain sample for follow up with urology . educated patient on completion of course on antibiotics as prescribed . no questions at this time .
== END 2021-10-26 12:46 | disposition home or self-care (01) ==
PROVIDERS: Physician Assistant Medical; Emergency Provider Emergency Medicine; PCP Pediatrics
DX: N39.0 Urinary tract infection, site not specified (principal); N20.0 Calculus of kidney; J45.909 Unspecified asthma, uncomplicated; Z20.822 Contact with and (suspected) exposure to COVID-19
CPT/HCPCS: 36415; 71045; 74176; 80053; 81001; 81003; 83735; 84484; 85025; 87502; 87635; 93005; 96361; 96374; 96375; 99284; J1885; J2405

== ENCOUNTER 2022-01-15 08:36 | Emergency (ER) | payer MEDICAID, SELFPAY ==
--- NOTE | ~2022-01-15 | XR_ITS ---
EXAMINATION: XR CHEST CLINICAL INFORMATION: Question pneumonia COMPARISON: Chest x-ray 10/26/2021 TECHNIQUE: Frontal view of the chest was obtained. FINDINGS: Cardiac silhouette is normal in size. Lungs are well aerated. There is no lobar consolidation. No pleural effusion or pneumothorax. XR/XR chest 1V IMPRESSION: Stable examination demonstrating no acute pulmonary pathology.
[2022-01-15 08:44] VITALS: BP 123/79; PULSE 78; RESP 18; TEMP 36.7; O2SAT 99; BMI 43.5
[2022-01-15 09:21] LABS: MANUAL DIFF FLAG NO
[2022-01-15 09:23] LABS: Basophils Absolute Auto 0.1 X10*3/uL (0.0-0.2); Basophils Percent Auto 0.5 % (0-2); Eosinophils Absolute Auto 0.2 X10*3/uL (0.0-0.4); Eosinophils Percent Auto 1.3 % (0-4); Hematocrit 44.9 % (37.0-47.0); Hemoglobin 14.6 g/dl (12.0-16.0); Imm Gran Abs Auto 0.06 X10*3/uL (0.00-0.03); Imm Gran Pct Auto 0.5 % (0.0-0.4); Lymphocytes Absolute Auto 2.2 X10*3/uL (1.2-4.9); Lymphocytes Percent Auto 16.4 % (20-40); Mean Corpuscular HGB Conc 32.5 g/dl (31.0-35.0); Mean Corpuscular Hemoglobin 26.7 pg (27.0-33.0); Mean Corpuscular Volume 82.2 fL (80.0-98.0); Mean Platelet Volume 9.3 fL (9.4-12.3); Monocytes Percent Auto 7.7 % (2-11); Neutrophils Absolute Auto 9.7 x10*3/uL (2.0-8.3); Neutrophils Percent Auto 73.6 % (45-73); Platelet Count 456 X10*3/uL (160-400); Red Blood Count 5.46 X10*6/uL (4.20-5.50); Red Cell Distribution Width 13.9 % (11.0-16.0); White Blood Count 13.2 X10*3/uL (4.8-10.8)
[2022-01-15] MEDS: ondansetron HCL 4 MG/2 ML VIAL IVPUSH ×2 (09:23→10:47)
[2022-01-15] MEDS: 0.9 % Sodium Chloride 1,000 ML 999 ML IV (09:24)
[2022-01-15] MEDS: Famotidine/PF 20 MG/2 ML VIAL IVPUSH (09:28)
--- NOTE | 2022-01-15 09:32 | ED_ITS ---
HPI - Nausea/Vomiting/Diarrhea General Chief complaint: Nausea/Vomiting/Diarrhea Stated complaint: vomiting/flu like symptoms Time Seen by Provider: 01/15/22 08:51 Source: patient Mode of arrival: ambulatory Limitations: no limitations History of Present Illness HPI Narrative: 21-year-old female presents to ED vomiting, body aches, retching, and coughing. Patient states for the past week she was feeling sick with body aches and coughing and took many COVID test that were negative and eventually got better. Patient states last night she went out with friends and was drinking 6 shots of Tequila without any food. Patient now states having retching but no abdominal pain. Patient denies any chest pain or shortness of breath. Patient states still having the cough which is dry. Patient denies any abdominal pain, flank pain, dysuria, hematuria, fever, dizziness, vaginal bleeding, vaginal discharge, or coughing up blood Related Data Previous Rx's Medication Instructions Recorded albuterol sulfate 90 mcg/actuation 2 inh inhalation Q4-6H PRN 10/20/20 breath activated powder inhaler shortness of breath or wheezing #1 ea ibuprofen 600 mg tablet 600 mg PO Q8H PRN pain #20 tabs 10/20/20 cephalexin 500 mg capsule 500 mg PO Q6H 7 days #28 caps 10/26/21 ondansetron 4 mg disintegrating 4 mg PO Q8H 3 days #9 tabs 10/26/21 tablet ondansetron HCl 4 mg tablet 4 mg PO Q6H PRN nausea and 01/15/22 vomiting 3 days #12 tabs Allergies Allergy/AdvReac Type Severity Reaction Status Date / Time No Known Allergies Allergy Unverified 01/31/20 17:09 Review of Systems Review of Systems: Vomiting, coughing, retching, body aches. Yes all other systems are reviewed and are negative PMFSH Past Medical History Medical History Anemia Asthma Social History Social History Alcohol intake: never Patient Tobacco Use Status: Never used Tobacco Substance Use Type: Marijuana Advance Directives: No Advance Directives Information Provided: Yes Physical Exam Vital Signs: Vital Signs: Last Vital Signs Temp 98.6 F 01/15/22 11:40 Pulse 67 01/15/22 11:40 Resp 14 01/15/22 11:40 BP 116/63 01/15/22 11:40 Pulse Ox 99 01/15/22 11:40 O2 Del Method 01/15/22 11:40 BMI result Body Mass Index 43.5 Const: General: cooperative, healthy appearing, comfortable, no acute distress, well developed, alert, awake and Physically active Orientation/consciousness: oriented to place, oriented to time and patient oriented x3 HEENT: Head: Yes normal to inspection, Yes No palpable skull fracture present, Yes normocephalic, Yes atraumatic and No abrasion Eyes: General: appearance normal, both eyes and all related structures Neck: Neck: Yes normal visual inspection, Yes full ROM, Yes no lymphadenopathy, Yes no meningeal signs, Yes trachea midline, Yes supple, No anterior neck swelling and No tender Chest: Chest palpation & inspection: normal inspection of the chest and normal palpation of entire chest wall Resp: Effort & Inspection: normal respiratory effort and able to speak in complete sentences Auscultation: clear to auscultation bilaterally Cardio: Jugular venous distension: no JVD Heart sounds: S1 normal heart so und present and S2 normal heart sound present GI: Inspection: Yes normal to inspection and No abdominal wall ecchymosis Palpation (GI): Soft to palpation, not firm, nontender, no guarding and not rigid : General: No CVA tenderness and Yes no CVA tenderness Back/Spine/Pelvis: Back: no CVA tenderness, No CVA tenderness and No back tenderness Skin: General skin exam: no rashes or lesions noted and elasticity normal Neuro: General: oriented to place, oriented to time, patient oriented x3, gait normal, no meningeal signs and CN's II-XI intact bilaterally Cranial nerves: Yes CN's II-XII intact bilaterally Extrem: General: Yes normal to inspection and Yes full ROM Psych: Appearance: grossly normal, well kempt and not disheveled Course Course Course Narrative: Patient labs ordered. Zofran Pepcid and fluids ordered. Chest x-ray ordered for atypical pneumonia. Reevaluation(s) Reevaluation #1: Patient feels better after fluids and Zofran. Labs are normal and at baseline. Chest x-ray negative for pneumonia. No need for any abdominal imaging patient does not have any abdominal pain. Patient passed p.o. challenge. COVID swab negative. Patient to follow-up with a primary care provider. Patient discharged with Zofran Time: 11:55 MDM - Nausea/Vomiting/Diarrhea MDM Narrative Medical decision making narrative: Viral syndrome. Nausea Lab Data Result diagrams: 01/15/22 09:16 09/07/07 09:16 Labs: Lab Results 01/15/22 01/15/22 01/15/22 Range/Units 09:16 09:16 09:16 WBC 13.2 H (4.8-10.8) X10*3/uL RBC 5.46 (4.20-5.50) X10*6/uL Hgb 14.6 (12.0-16.0) g/dl Hct 44.9 (37.0-47.0) % MCV 82.2 (80.0-98.0) fL MCH 26.7 L (27.0-33.0) pg MCHC 32.5 (31.0-35.0) g/dl RDW 13.9 (11.0-16.0) % Plt Count 456 H D (160-400) X10*3/uL MPV 9.3 L (9.4-12.3) fL Immature Gran % (Auto) 0.5 H (0.0-0.4) % Neut % (Auto) 73.6 H (45-73) % Lymph % (Auto) 16.4 L (20-40) % [place] % (Auto) 7.7 (2-11) % Eos % (Auto) 1.3 (0-4) % Baso % (Auto) 0.5 (0-2) % Lymph # (Auto) 2.2 (1.2-4.9) X10*3/uL [place] # (Auto) 1.0 (0.1-1.2) X10*3/uL Eos # (Auto) 0.2 (0.0-0.4) X10*3/uL Baso # (Auto) 0.1 (0.0-0.2) X10*3/uL Abs Immat Gran (auto) 0.06 H (0.00-0.03) X10*3/uL Absolute Neuts (auto) 9.7 H (2.0-8.3) x10*3/uL Absolute Nucleated RBC 0.000 (0.0-0.012) X10*3/uL Nucleated RBC % (auto) 0.0 (0.0-0.2) /100WBC Sodium 142 (135-145) mmol/L Potassium 4.2 (3.3-5.1) mmol/L Chloride 103 (96-108) mmol/L Carbon Dioxide 23 (22-29) mmol/L Anion Gap 20 (12-20) BUN 7 L (9-16) mg/dL Creatinine 0.72 (0.5-1.4) mg/dL Estim Creat Clear Calc 162.2 Estimated GFR > 60 Random Glucose 110 (60-115) mg/dL Calcium 9.5 (8.4-10.2) mg/dL Total Bilirubin 0.2 (0.0-1.0) mg/dL AST 17 (5-31) U/L ALT 14 (0-31) U/L Alkaline Phosphatase 90 (39-117) U/L Total Protein 8.1 H (6.5-8.0) g/dL Albumin 4.2 (3.5-5.0) g/dL Lipase 29 (8-78) U/L Beta HCG, Quant < 2 mIU/mL Urine Color Urine Appearance Urine pH (5.0-9.0) Ur Specific [place] (1.005-1.025) Urine Protein (Neg-Trace) mg/dL Urine Glucose (UA) (Negative) mg/dL Urine Ketones (Negative) mg/dL Urine Blood (Negative) Urine Nitrite (Negative) Ur Leukocyte Esterase (Negative) Urine RBC (0-2) /HPF Urine WBC (0-5) /HPF Ur Squamous Epith Cells (0-2) /HPF Urine Bacteria (None Seen) Hyaline Casts (0-2) /LPF Urine Test (NEGATIVE) COVID-19 ([facility]) Negative (Negative) COVID-19 Clin Com See Note 01/15/22 01/15/22 Range/Units 10:40 10:40 WBC (4.8-10.8) X10*3/uL RBC (4.20-5.50) X10*6/uL Hgb (12.0-16.0) g/dl Hct (37.0-47.0) % MCV (80.0-98.0) fL MCH (27.0-33.0) pg MCHC (31.0-35.0) g/dl RDW (11.0-16.0) % Plt Count (160-400) X10*3/uL MPV (9.4-12.3) fL Immature Gran % (Auto) (0.0-0.4) % Neut % (Auto) (45-73) % Lymph % (Auto) (20-40) % [place] % (Auto) (2-11) % Eos % (Auto) (0-4) % Baso % (Auto) (0-2) % Lymph # (Auto) (1.2-4.9) X10*3/uL [place] # (Auto) (0.1-1.2) X10*3/uL Eos # (Auto) (0.0-0.4) X10*3/uL Baso # (Auto) (0.0-0.2) X10*3/uL Abs Immat Gran (auto) (0.00-0.03) X10*3/uL Absolute Neuts (auto) (2.0-8.3) x10*3/uL Absolute Nucleated RBC (0.0-0.012) X10*3/uL Nucleated RBC % (auto) (0.0-0.2) /100WBC Sodium (135-145) mmol/L Potassium (3.3-5.1) mmol/L Chloride (96-108) mmol/L Carbon Dioxide (22-29) mmol/L Anion Gap (12-20) BUN (9-16) mg/dL Creatinine (0.5-1.4) mg/dL Estim Creat Clear Calc Estimated GFR Random Glucose (60-115) mg/dL Calcium (8.4-10.2) mg/dL Total Bilirubin (0.0-1.0) mg/dL AST (5-31) U/L ALT (0-31) U/L Alkaline Phosphatase (39-117) U/L Total Protein (6.5-8.0) g/dL Albumin (3.5-5.0) g/dL Lipase (8-78) U/L Beta HCG, Quant mIU/mL Urine Color Dark Yellow Urine Appearance Clear Urine pH 5.5 (5.0-9.0) Ur Specific [place] 1.025 (1.005-1.025) Urine Protein Trace (Neg-Trace) mg/dL Urine Glucose (UA) Negative (Negative) mg/dL Urine Ketones Negative (Negative) mg/dL Urine Blood Trace H (Negative) Urine Nitrite Negative (Negative) Ur Leukocyte Esterase Negative (Negative) Urine RBC 0-2 (0-2) /HPF Urine WBC 0-5 (0-5) /HPF Ur Squamous Epith Cells 3-5 (0-2) /HPF Urine Bacteria 1+ (None Seen) Hyaline Casts 0-2 (0-2) /LPF Urine Test NEGATIVE (NEGATIVE) COVID-19 ([facility]) (Negative) COVID-19 Clin Com Discharge Plan Discharge Clinical Impression: Acute viral syndrome, Nausea & vomiting Patient Disposition: Home, Self-Care Instructions: Acute Nausea and Vomiting (ED), Viral Syndrome (ED) Additional Instructions: Return to the ED immediately for any abdominal pain, dysuria, hematuria, flank pain, fever, chills, chest pain, shortness of breath, vomiting blood, rectal bleeding, headache, dizziness, slurred speech, facial droop, paralysis of extremities, or any other concerning symptoms. Please follow-up with your primary care provider. Recommend oral hydration Prescriptions: New ondansetron HCl 4 mg tablet 4 mg PO Q6H PRN (Reason: nausea and vomiting) 3 Days Qty: 12 0RF No Action ibuprofen 600 mg tablet 600 mg PO Q8H PRN (Reason: pain) Qty: 20 0RF albuterol sulfate 90 mcg/actuation aerosol powdr breath activated 2 inh inhalation Q4-6H PRN (Reason: shortness of breath or wheezing) Qty: 1 0RF cephalexin 500 mg capsule 500 mg PO Q6H 7 Days Qty: 28 0RF ondansetron 4 mg tablet,disintegrating 4 mg PO Q8H 3 Days Qty: 9 0RF Stand Alone Forms: Work/School Release Interventions: ED Discharge Assessment Last Done: 01/15/22 12:07 Discharge Date/Time: 01/15/22 12:07 Print Language: Citizen Of [place]
--- NOTE | 2022-01-15 09:32 | PC.NURSE ---
medicated as ordered for nausea, skin wpd, ns infusing, sick for several days, felt better and drank etoh last night and now w nausea, denies abd pain, occasional cough
[2022-01-15 09:33] VITALS: BP 125/69; PULSE 77; RESP 16; TEMP 36.9; O2SAT 97
[2022-01-15 09:39] LABS: COVID-19 Test Negative (Negative)
[2022-01-15 09:44] LABS: Alanine Aminotransferase 14 U/L (0-31); Albumin Level 4.2 g/dL (3.5-5.0); Alkaline Phosphatase 90 U/L (39-117); Anion Gap 20 (12-20); Aspartate Amino Transferase 17 U/L (5-31); Bilirubin Total 0.2 mg/dL (0.0-1.0); Blood Urea Nitrogen 7 mg/dL (9-16); Calcium 9.5 mg/dL (8.4-10.2); Carbon Dioxide 23 mmol/L (22-29); Chloride 103 mmol/L (96-108); Creatinine Clr Calc Pharmacy 162.2; Estimated Glomerular Filt Rate > 60; Glucose Random 110 mg/dL (60-115); Lipase 29 U/L (8-78); Potassium 4.2 mmol/L (3.3-5.1); Sodium 142 mmol/L (135-145); Total Protein 8.1 g/dL (6.5-8.0)
[2022-01-15 09:49] LABS: HCG Quantitative < 2 mIU/mL
[2022-01-15 10:51] LABS: Appearance Urine Clear; Color Urine Dark Yellow; Glucose Urine UA Negative (Negative); Leukocyte Esterase Urine Negative (Negative); Nitrite Urine Negative (Negative); PH 5.5 (5.0-9.0); Specific Gravity - Urine 1.025 (1.005-1.025); Urine Blood Trace (Negative); Urine Ketones Negative (Negative); Urine Protein Trace mg/dL (Neg-Trace)
[2022-01-15 10:52] LABS: UPreg QC Valid YES; Urine Pregnancy NEGATIVE (NEGATIVE)
[2022-01-15 10:56] LABS: Bacteria Urine 1+ (None Seen); Hyaline Casts Urine 0-2 /LPF (0-2); RBC Urine 0-2 /HPF (0-2); WBC Urine 0-5 /HPF (0-5)
[2022-01-15 11:35] VITALS: BP 136/74; PULSE 79; RESP 16; O2SAT 98
[2022-01-15 11:40] VITALS: BP 116/63; PULSE 67; RESP 14; TEMP 37; O2SAT 99
== END 2022-01-15 12:07 | disposition home or self-care (01) ==
PROVIDERS: Physician Assistant; Emergency Provider Emergency Medicine; PCP Radiology Nuclear Radiology
DX: B34.9 Viral infection, unspecified (principal); R11.2 Nausea with vomiting, unspecified; R05.9 Cough, unspecified; Z20.822 Contact with and (suspected) exposure to COVID-19; Z79.899 Other long term (current) drug therapy
CPT/HCPCS: 71045; 80053; 81001; 81025; 83690; 84702; 85025; 87635; 96374; 96375; 96376; 99283; 99284; J2405